=== PATIENT | female | born 1980 | race Caucasian/White ===

== ENCOUNTER 2023-07-28 03:14 | Outpatient (CLI) | payer OTHER, SELFPAY ==
[2023-07-28 12:58] LABS: Abs Immature Grans 0.01 10^3/uL (0.0-0.06); Absolute Basophil Count 0.04 10^3/uL (0.0-0.2); Absolute Eosinophil Count 0.04 10^3/uL (0.0-0.7); Absolute Lymphocyte Count 1.59 10^3/uL (1.2-3.4); Absolute Monocyte Count 0.28 10^3/uL (0.1-0.8); Absolute Neutrophil Count 3.62 10^3/uL (1.2-6.7); Basophils % 0.7; Eosinophils % 0.7; HCT 42.3 % (36.0-46.0); HGB 14.4 g/dL (11.2-15.7); Immature Grans % 0.2; Lymphocytes % 28.5; MCH 30.4 pg (27.0-33.0); MCV 89 fL (80-95); MPV 10.1 fL (8.0-11.0); Neutrophils % 64.9; Platelet Count 194 10^3/uL (130-400); RBC 4.74 10^6/uL (3.93-5.22); RDW 11.9 % (11.7-14.6); RDW-SD 38.9 fL; WBC 5.58 10^3/uL (4.4-10.8)
[2023-07-28 13:25] LABS: ALT 22 U/L (14-59); AST 15 U/L (15-37); Albumin 4.1 g/dL (3.4-5.0); Alkaline Phosphatase 58 U/L (46-116); Anion Gap 6.9 mmol/L (3-11); BUN 10 mg/dL (7-18); Bilirubin, Total 0.6 mg/dL (0.2-1.0); CO2 31.1 mmol/L (21.0-32.0); CREATININE 0.8 mg/dL (0.55-1.02); Calcium 9.1 mg/dL (8.5-10.1); Calculated LDL 96 mg/dL (<100); Chloride 104 mmol/L (98-107); Cholesterol 175 mg/dL (<200); Estimated GFR 94.87 (mL/min/1.73m2); Glucose 86 mg/dL (74-106); HDL Cholesterol 72 mg/dL (40-60); Hemoglobin A1C 5.1 % (<5.7); Potassium 3.9 mmol/L (3.5-5.1); Sodium 142 mmol/L (136-145); Total Protein 7.4 g/dL (6.4-8.2); Triglyceride 37 mg/dL (<150)
[2023-07-28 22:13] LABS: Estradiol 213 pg/mL (See Note)
[2023-07-28 22:15] LABS: Progesterone 0.4 ng/mL (See Table)
[2023-07-28 23:00] LABS: Hepatitis C Ab w Rflx HCV PCR Negative (Negative)
[2023-08-03 01:51] LABS: Testosterone, Total 68 ng/dL (8-60)
== END 2023-07-28 03:15 | disposition home or self-care (01) ==
LOC: LBO 03:14
PROVIDERS: PCP Nurse Practitioner Family; Visit Provider Nurse Practitioner Family
DX: Z00.00 Encounter for general adult medical examination without abnormal findings (principal); E28.2 Polycystic ovarian syndrome
CPT/HCPCS: 36415; 80053; 80061; 84403; 86803; 82670; 83001; 83002; 83036; 84144; 84443; 85025

== ENCOUNTER → 2023-08-01 03:24 | Outpatient (CLI) | payer OTHER, SELFPAY ==
--- NOTE | 2023-08-01 06:45 | DI.MAMMO_ITS ---
Exam(s) MAMMO SCREENING EXAM: MAMMO SCREENING CLINICAL HISTORY: screening,Z12.39. TECHNIQUE: Bilateral full field digital CC and MLO mammographic images were obtained with 3D tomosyn thesis and utilizing computer aided detection (CAD). COMPARISON: Prior outside mammogram of July 2022 FINDINGS: There has been no significant change in the appearance and distribution of the fibroglandular tissue. There are no CAD designations. There are no new spiculated masses nor malignant appearing microcalcification groups. There is no significant architectural distortion nor skin thickening-retraction. IMPRESSION: No radiographic evidence of malignancy. BI-RADS Category 1 - Negative Breast Density - Category C - Heterogeneously dense Breast density Category C or D implies that the patient has dense breast tissue. Dense breast tissue can make it harder to find cancer on a mammogram. Dense breast tissue is also associated with an incr eased risk of breast cancer. This information about the result of the mammogram report was provided to the patient to raise their awareness. Use this report when you speak with the patient about their risks for breast cancer, which includes their family history. At that time, you may recommend additional screening tests (Ultrasoun d or MRI) as these tests may add significant information. A negative radiographic report should not delay biopsy if a dominant or clinically suspicious mass is present. Up to ten percent of cancers are not identified on mammography. A negative report may reinforce clinical impression. Adenosis and dense breasts may obscure an underlying neoplasm. False positive reports average 6 to 10%. Patient will receive a letter notifying them of these results.
== END ==
PROVIDERS: PCP Nurse Practitioner Family; Visit Provider Nurse Practitioner Family
DX: Z12.31 Encounter for screening mammogram for malignant neoplasm of breast (principal)
CPT/HCPCS: 77063; 77067

== ENCOUNTER 2023-08-16 14:19 | Outpatient (REF) | payer OTHER, SELFPAY | END 2023-08-16 14:20 | disposition home or self-care (01) | LOC: LBN 14:19 | PROVIDERS: PCP Nurse Practitioner Family; Visit Provider Physician Assistant | DX: N39.0 Urinary tract infection, site not specified (principal) | CPT/HCPCS: 87086 ==

== ENCOUNTER 2023-08-23 14:20 | Outpatient (CLI) | payer OTHER, SELFPAY ==
[2023-08-23 22:42] LABS: CEA <0.5 ng/mL (See Note)
[2023-08-24 09:33] LABS: CA 19-9 3 U/mL (<35)
[2023-08-24 10:17] LABS: CA 125 20 U/mL (<30)
== END 2023-08-23 14:21 | disposition home or self-care (01) ==
LOC: LBO 14:24
PROVIDERS: PCP Nurse Practitioner Family; Visit Provider Obstetrics & Gynecology
DX: N83.201 Unspecified ovarian cyst, right side (principal)
CPT/HCPCS: 36415; 86304; 82378; 86301

== ENCOUNTER 2023-08-31 13:38 | Outpatient (REF) | payer OTHER, SELFPAY | END 2023-08-31 13:39 | disposition home or self-care (01) | LOC: LBN 13:38 | PROVIDERS: PCP Nurse Practitioner Family; Visit Provider Nurse Practitioner Family | DX: J02.9 Acute pharyngitis, unspecified (principal) | CPT/HCPCS: 87070 ==

== ENCOUNTER 2023-09-19 05:12 | Outpatient (CLI) | payer OTHER, SELFPAY | END 2023-09-19 05:13 | disposition home or self-care (01) | LOC: LBO 05:12 | PROVIDERS: PCP Nurse Practitioner Family; Visit Provider Obstetrics & Gynecology | DX: Z01.818 Encounter for other preprocedural examination (principal) | CPT/HCPCS: 36415; 86850; 86900; 86901 ==

== ENCOUNTER 2023-09-21 06:20 | Day surgery (SDC) | payer OTHER, SELFPAY ==
[2023-09-21] VITALS (8 sets, daily range): BP systolic 86–106; BP diastolic 50–76; PULSE 43–55; RESP 15–16; TEMP 36.2–36.5; O2SAT 99–100; BMI 23.4
[2023-09-21] MEDS: Lactated Ringers 1,000 ML 125 ML IV (06:48)
--- NOTE | 2023-09-21 06:53 | W.ANESPRE ---
General Info Date of Service Date Performed: 09/21/23 Height: 5 ft 6 in Weight: 65.941 kg Body Mass Index (BMI): 23.4 Surgical Procedure: Operation Date: 09/21/23 07:40 Proposed Procedure Side Surgeon p Oophorectomy Laparoscopic, Possible Rt Cystectomy, Possible Laparotomy Right Jill Hough MD Actual Procedure Side Surgeon p Oophorectomy Laparoscopic, Possible Rt Cystectomy, Possible Laparotomy Right Jill Hough MD Pre-Op Diagnosis Post-Op Diagnosis Right ovarian cyst Meds Allergies and Home Medications Allergies Allergy/AdvReac Type Severity Reaction Status Date / Time No Known Allergies Allergy Verified 09/21/23 06:48 Home Medication Medication Instructions Recorded cholecalciferol (vitamin D3) 25 25 mcg PO DAILY 07/06/23 mcg (1,000 unit) capsule bupropion HCl 150 mg tablet,12 hr 150 mg PO DAILY 07/14/23 sustained-release (Wellbutrin SR) medroxyprogesterone 10 mg tablet 10 mg PO DAILY #30 tabs 08/12/23 (Provera) oxycodone 5 mg capsule 5 mg PO Q8H PRN pain #7 caps 08/16/23 Current Visit Medications: Current Medications Generic Name Dose Route Start Last Admin Trade Name Freq PRN Reason Stop Dose Admin Ringer's Solution 1,000 mls @ 125 mls/hr 09/21/23 06:00 09/21/23 06:48 IV 10/20/23 23:59 125 mls/hr INFUSION FLEX Administration IV Miscellaneous Supplies 1 each 09/21/23 06:00 Iv Access IV 10/20/23 23:59 DIRECTED FLEX Sodium Chloride 0 ml 09/21/23 06:00 Normal Saline Flush 10 Ml Syr IV 10/20/23 23:59 PRN PRN Sodium Chloride 0 ml 09/21/23 06:00 Normal Saline 10 Ml Vial IJ 10/20/23 23:59 DIRECTED PRN Sterile Water 0 ml 09/21/23 06:00 Water,Injection,Sterile 10 Ml Vial IJ 10/20/23 23:59 DIRECTED PRN PFSH Active Problems Active Problems: Problem Status Onset Code Sore throat J02.9 Right lower quadrant pain R10.31 Right ovarian cyst N83.201 Polycystic ovary syndrome E28.2 Generalized anxiety disorder F41.1 Major depressive disorder F32.9 Chronic left shoulder pain M25.512, G89.29 Surgical History Surgical History History of section (12/11/16) and 12/05/2019 Tobacco Smoking/Tobacco Use Status: Never Alcohol Alcohol Intake: current Alcohol intake frequency: a few times a week Alcohol type: beer and wine Substance Use Substance use: Rarely Substance use type: marijuana Prental History History 2 Para 2 Hx # Term Pregnancies 2 Multiple births Hx # Pregnancies Ectopic pregnancies AB induced Hx Number of Living Children 2 AB spontaneous Vital Signs and Lab Results Vital Signs Most Recent Vital Signs in EMR: Most Recent Vital Signs Temp Pulse Resp BP Pulse Ox 36.5 C 50 L 16 106/73 100 09/21/23 06:42 09/21/23 06:42 09/21/23 06:42 09/21/23 06:42 09/21/23 06:42 Point of Care Results Point of Care Results: POC- Test(urine) Negative 09/21/23 06:42 Lab Results Blood Type / Crossmatch: Antibody Screen NEGATIVE 09/19/23 Complete Blood Count: No Data to Display Complete Metabolic Panel: No Data to Display Liver Function Panel: No Data to Display Coagulation Panel: No Data to Display Cardiac Panel: No Data to Display Arterial Blood Gas: No Data to Display Venous Blood Gas: No Data to Display Pancreas Panel: No Data to Display Thyroid Panel: No Data to Display Infectious Disease: No Data to Display Blood Cultures: No Data to Display Toxicology Panel: No Data to Display Panel: No Data to Display Imaging and Studies Imaging and Studies Study information below may be from another EMR and interpreted by another provider. Please see original notes in EMR for more complete details. EKG Summary: 07/26/22: ([place]): SB Echocardiogram Summary: Patient reports benign per [place] Anesthesia Assessment and Plan Anesthesia History Personal History: No History of Anesthesia Complications Family History: No Family History of Anesthesia Complications Exercise Tolerance Exercise Tolerance: Metabolic Equivalents>4 Pertinent Negatives Pertinent Negatives: No Symptoms of GERD, No Major Cardiovascular Symptoms or Complaints and No Major Pulmonary Symptoms or Complaints Cardiac & Pulmonary Exam Cardiac Exam: Normal S1/S2 Heart Sounds Pulmonary Exam: Clear Bilateral Breath Sounds Implantable Cardiac Device Does patient have a Pacemaker or an ICD?: No Airway Exam Known Difficult Airway: No Mallampati Class: 1 Mouth Opening: Normal (> 3cm) Thyromental Distance: Greater than 3 cm Neck Range of Motion: Full ROM Neck Circumference: Normal Teeth Condition: Normal Dentition ASA Classification ASA Score: ASA 2 Emergency Case?: No NPO Status NPO Status: NPO Clears >2 hours, Solids >8 hours Status Status: Negative HCG Anesthesia Plan Resuscitation Status: Full Code Anesthesia Technique: General Anesthesia Airway Planned: Endotracheal Tube Monitors Used: Standard Monitors
--- NOTE | 2023-09-21 09:00 | PAPNONF_PTH ---
PATIENT: Lorraine Thomas LOC: [facility] U#:[id number] AGE/SX: 42/F ROOM: RE09/21/[address]: Jill Hough MD : 1980 BED: DIS: 09/21/2023 SPEC #: [id number] RECD: 09/21/23 12:43 STATUS: AMBER REQ #: [id number] SHAQ: 09/21/23 09:[address]: Jill Hough DEPT: [facility] Cytology RECD BY: Pooja Vazquez ENTERED: 09/21/23 12:44 SP TYPE: HARRIET SIFUENTES DR: DAYDAY Llanos Tissues: 1 - BODY FLUID CYTO(NOT S/U/N/EM)[facility] Procedures: BODY FLUID CYTO(NOT SPU/UR/NIP/ENDOM)[facility] Comments: (Tv = 60 ml, SENT FRESH) (REFRIGERATED)
[2023-09-21] MEDS: Bupivacaine 0.5% Pres-Free 30 ML VIAL (09:03)
--- NOTE | 2023-09-21 09:15 | OVAR_PTH ---
PATIENT: Lorraine Thomas LOC: [facility] U#:[id number] AGE/SX: 42/F ROOM: RE09/21/[address]: Jill Hough MD : 1980 BED: DIS: 09/21/2023 SPEC #: [id number] RECD: 09/21/23 12:17 STATUS: AMBER MIRZA #: [id number] SHAQ: 09/21/23 09:[address]: Jill Hough DEPT: Surgical Specimen RECD BY: Pooja Vazquez ENTERED: 09/21/23 12:19 SP TYPE: ALANNA SIFUENTES DR: DAYDAY Llanos Tissues: 1 - OVARY NOT TUMOR W OR W/O TUBES 2 - FALLOPIAN TUBE (OTHER) Procedures: GROSS AND MICRO LEVEL 4 GROSS AND MICRO LEVEL 3 Comments: [id number]
--- NOTE | 2023-09-21 09:49 | W.PM.OP ---
Date of service: 09/21/23 Time of Service: 09:49 Operative Note Operative Note PRE-OP DIAGNOSIS: left ovarian cyst POST-OP DIAGNOSIS: same PROCEDURE: Laparoscopic left oophorectomy, bilateral salpingectomy SURGEON: Jill Hough ASSISTING SURGEON: Antoinette Denney Refer to Anesthesia Record ESTIMATED BLOOD LOSS: 100 PATHOLOGY: other (cyst fluid, right ovary, bilateral tubes) COMPLICATIONS: None Patient was transported to: PACU Patient's condition: stable Indications: Discovery of large right ovarian cyst on sono for pelvic pain. Normal tumor markers. Transportation Planning Engineer/onc consult with approval for local removal. Findings: Significantly enlarged right ovary >10cm, filling most of the pelvis. Normal appearing left ovary, tubes, uterus and appendix Procedure Description: After informed consent was signed the patient was taken to the operating room and given general anesthesia.? SCDs were placed on her legs.? She was prepped and draped in the dorsal lithotomy position in the [facility].? Her bladder was drained of urine via a straight catheter. A speculum was placed into the vagina to expose the cervix and a [employer]Dro[employer] manipulator was placed into the cervix. The speculum was removed. Gloves were changed and attention was turned to the abdomen. The infraumbilical fold was grasped and injected with 0.25% marcaine with epinephrine. A 12mm incision was made in the infraumbilical fold with the scalpel. A hemostat was used to bluntly dissect the subcuticular layers. The fascia was grasped with misael clamps and incised. The incision was extended with blunt pressure. The visiport was used to enter the abdomen under direct visualization. Once entrance to the abdominal cavity was confirmed the CO2 was turned on and the abdomen was insufflated. Two lateral 5mm ports were then placed under direct visualization. The enlarged ovary was immediately visible almost at the level of the umbilicus. It was traced back and identified as the right ovary. There were no adhesions. The IP ligament was identified and the ureter was noted to be far from the operative site. The IP ligament was clamped cauterized and cut with the ligasure device. This was continued along the mesosalpinx, across the round ligament and the utero-ovarian ligament. Good hemostasis was noted. The cyst was far too large to fit in the 10mm endocatch bag that was available so the laparoscopic needle was used to drain fluid from the cyst. A total of 600ml of fluid was drained from the cyst. The fluid was mostly clear with occasional blood tinge. The ovary was then put in the endocatch bag and eva up to the umbilical incision. The fascial incision was extended slightly. The ovary was slowly removed from the bag without losing any tissue into the abdominal cavity. The port was reinserted into the abdomen. The left tube was identified and followed to the fimbriated end. The tube was grasped and elevated and the mesosalpinx was clamped, cauterized and cut with the ligasure device. The was continued along the length of the tube. The proximal end of the tube was then transected with the ligasure. Good hemostasis was noted on both sides. The tube was removed individually through the port and noted to be intact. The abdomen was then copiously irrigated. The ports were removed. The gas was released from the abdomen. The fascia of the umbilical incision was identified and closed with 0 vicryl suture. The skin incisions were then closed with 4-0 vicryl. Mastisol and steristrips were placed. The manipulator was removed. The patient was placed back into the supine position.? She was moved to the stretcher and taken to the recovery room in stable condition.
[2023-09-21] MEDS: oxyCODONE 5 MG TAB PO (11:33)
--- NOTE | 2023-09-21 13:44 | W.PM.DSUDISC ---
Date of service: 09/21/23 Time of Service: 10:00 Discharge Plan Disposition Patient Disposition: Home Condition: Stable Discharge Details Attending Provider: Jill Hough Primary Care Provider: Bailey Meng Meds and New Rx's Prescriptions: No Action bupropion HCl [Wellbutrin SR] 150 mg tablet sustained-release 12 hr 150 mg PO DAILY medroxyprogesterone [Provera] 10 mg tablet 10 mg PO DAILY Qty: 30 1RF oxycodone 5 mg capsule 5 mg PO Q8H MDD 15mg PRN (Reason: pain) Qty: 7 0RF cholecalciferol (vitamin D3) 25 mcg (1,000 unit) capsule 25 mcg PO DAILY Discharge Instructions Activity:: no lifting >20lbs Shower/Bathe:: 24 hours Diet:: As Tolerated Discharge Orders Discharge Orders: Discharge Order (Routine); Ordered 09/21/23 Ordered By: Jill Hough
--- NOTE | 2023-09-21 13:47 | W.ANESPOSTOP ---
Postoperative Evaluation Date, Time and Location Date Performed: 09/21/23 Time Performed: 12:35 Patient Location: Day Surgery Unit Vital Signs Most Recent Imported Vital Signs: Most Recent Vital Signs Temp Pulse Resp BP Pulse Ox 36.3 C L 43 L 16 97/61 L 99 09/21/23 10:55 09/21/23 10:55 09/21/23 10:55 09/21/23 10:55 09/21/23 10:55 Pain Score Most Recent Pain Score: Most Recent Pain Score Pain Level 5 09/21/23 11:27 Assessment Mental Status: Awake (Alert & Oriented to Patient Baseline) Airway and Respiratory Function: Patent airway with normal (patient baseline) respiratory exam Cardiovascular Function: Hemodynamically Stable Hydration Status: Adequately Hydrated Nausea & Vomiting: No Nausea or Vomiting Pain: Pain is tolerable per patient Peripheral Nerve Block: Patient did not receive a nerve block
== END 2023-09-21 06:21 | disposition home or self-care (01) ==
PROVIDERS: PCP Nurse Practitioner Family; Visit Provider Obstetrics & Gynecology
PROC: (CPT 58661; principal; 2023-09-21 07:30)
DX: D27.0 Benign neoplasm of right ovary
CPT/HCPCS: 58661; 81025; 88305; 88104; 88304; J0131; J0665; J1100; J1885; J2001; J2250; J2405; J2704; J3010

== ENCOUNTER 2024-07-16 08:58 | Outpatient (CLI) | payer OTHER, SELFPAY | END 2024-07-16 08:59 | disposition home or self-care (01) | LOC: DI.CM 09:00 | PROVIDERS: PCP Nurse Practitioner Family; Visit Provider Nurse Practitioner Family | CPT/HCPCS: 93010 ==

== ENCOUNTER 2024-07-23 12:58 | Outpatient (CLI) | payer OTHER, SELFPAY ==
--- NOTE | 2024-07-23 13:00 | RT.EKG_ITS ---
APPROVED REPORT Exam: Resting ECG Reason for Exam: Andrae abbott of ARVC Patient Location: O HR:55 bpm ECG Measurements Heart Rate 55 AXIS [place] 171 P 77 QRSd 98 QRS 80 QT 429 T 61 QTc 411 Conclusion Sinus rhythm...normal P axis, V-rate 50- 99 Normal Electrocardiogram
== END 2024-07-23 12:59 | disposition home or self-care (01) ==
PROVIDERS: PCP Nurse Practitioner Family; Visit Provider Nurse Practitioner Family
DX: Z82.49 Family history of ischemic heart disease and other diseases of the circulatory system (principal); Z13.6 Encounter for screening for cardiovascular disorders
CPT/HCPCS: 93005; 93010

== ENCOUNTER 2024-08-15 00:57 | Outpatient (CLI) | payer OTHER, SELFPAY ==
--- NOTE | 2024-08-15 07:30 | DI.US_ITS ---
APPROVED REPORT EXAM: Comprehensive 2D, Doppler, and color-flow Echocardiogram Patient Location: Out-Patient Drilling Inspector: Severo Terry RDCS (AE) Indications: Family history of ARVC Conclusion Normal left ventricular wall thickness and chamber size. Ejection fraction is 60 to 65%. Wall motio n is normal Normal right ventricular size and function Both atria are normal in size There is no structural or hemodynamically significant valvular disease Estimated right ventricular systolic pressure is 18 mmHg Wall motion Left Ventricle The left ventricle is normal size. Left ventricular systolic function is normal. The left ventricular ejection fraction is within the normal range. There is normal left ventricular wall thickness. There is normal LV segmental wall motion. The left ventricular diastolic function is normal. There is no v entricular septal defect visualized. LVEF is 60-65%. Right Ventricle The right ventricle is normal size. The right ventricular systolic function is normal. Atria The left atrium size is normal. The right atrium size is normal. The interatrial septum is intact wit h no evidence for an atrial septal defect. Aortic Valve The aortic valve is normal in structure. Aortic valve is trileaflet. There is no aortic valvular sten osis. No aortic regurgitation is present. Mitral Valve The mitral valve is normal in structure. No evidence of mitral valve stenosis. Mild mitral regurgitat ion. Tricuspid Valve The tricuspid valve is normal in structure. There is no tricuspid valve stenosis. Trace tricuspid reg urgitation. The RVSP is 18.3 mmHg. Pulmonic Valve The pulmonary valve is normal in structure. There is no pulmonic valvular stenosis. There is no pulmo tesfaye valvular regurgitation. Great Vessels The aortic root is normal in size. The ascending aorta is normal in size. Aortic arch is normal in ca liber. IVC is normal in size and collapses >50% with inspiration. Pericardium There is no pericardial effusion. 2D Dimensions IVSD d PLAX 0.78 cm F: 0.6-1.0 Ao Root d 2.77 cm F: 2.7 - 3.3 LVPW d PLAX 0.83 cm F: 0.6 - 1.0 Ao Asc Diam d 3.13 cm F: 2.3 - 3.1 LVID d PLAX 4.38 cm F: 3.8 - 5.2 LVDs 2.82 cm F: 2.2 - 3.5 LV EF Teichholz 65.5 % FS 35.71 % LV EDV (Teich) 86.9 mL LV ESV (Teich) 30.0 mL Stroke Vol Index (Teich) 33.06 M-Mode TAPSE 2.71 cm (M/F) >1.7 Auto EF LV EDV A4C 89.4 mL LV EDV A2C 112.0 mL LV EDV BP 99.7 mL LV ESV A4C 35.8 mL LV ESV A2C 42.6 mL LV ESV BP 38.5 mL LVEF(%) A4C 60.0 % LVEF(%) A2C 62.0 % LVEF(%) BP 61.4 % LV SV A4C 53.6 ml LV SV A2C 69.4 ml LV SV BP 61.2 ml LV CO A4C 2.9 L/min LV CO A2C 3.6 L/min LV CO BP 3.2 L/min HR A4C 53.32 BPM HR A2C 52.03 BPM LV EDV Index (BP) LA Volume LA Length A4C 3.2 cm LA Length A2C 4.1 cm LA Area A4C s 8.41 cm2 LA Area A2C s 10.82 cm2 LA Vol A4C A-L 18.66 mL LA Vol A2C A-L 24.11 mL LA Vol Biplane A-L 24.0 mL LA Vol/BSA A4C A-L LA Vol/BSA A2C A-L LA Vol/BSA BP A-L 14.0 mL/m2 LA Vol A4C MOD 16.9 mL LA Vol A2C MOD 22.7 mL LA Vol BP MOD 21.7 mL RA Volume RA Area A4C 5.7 cm2 RA ESV A4C (A-L) 11.2mL RA Vol/BSA A4C A-L RA Length A4C 2.5 cm RA ESV A4C (MOD) 10.9mL LV Diastology MV E' medial 0.113 (>0.07 m/s) MV E Vmax 0.61 (0.4-1.3 m/s) MV E/E' MED 5.40 (<14) MV A Vmax 0.50 (0.4-1.3 m/s) MV E' lateral 0.152 (>0.1 m/s) E/A Ratio 1.2 MV E/E' LAT 4.02 (<14) MV E' Average 0.132 m/s MV E/E'(average) 4.61 Aortic Valve AoV Vmax 1.12 m/s LVOT Vmax 1.05 m/s AoV Peak Grad 5.0 mmHg LVOT Peak Grad 4.4 mmHg AoV Area (Vmax) 2.90 cm2 LVOT VTI 0.228 m AoV VTI 0.249 m LVOT Mean Grad 2.4 mmHg AoV Mean Richar. 0.77 m/s LVOT SV 70.23 mL AoV Mean Grad 2.7 mmHg LVOT Diam s 1.95 cm AoV Area (VTI) 2.82 cm2 AV Regurg Peak Gr. 5.01 mmHg Velocity Ratio 0.94 Mitral Valve MV DT 171 (160-240 msec) Pulmonary Valve PV Vmax 0.63 (0.5-1.5 m/s) RVOT Vmax 0.46 m/s PV Peak Grad 1.6 mmHg RVOT Peak Gr. 0.8 mmHg PV Mean Richar 0.48 m/s RVOT VTI 0.120 m PV Mean Grad 1.0 mmHg RVOT Mean Gr. 0.5 mmHg Tricuspid Valve RA Pressure 3.00 mmHg TR Vmax 1.95 m/s TV S' 0.14 m/s TR Peak Grad 15.2 mmHg RVSP (TR) 18.3 mmHg
--- NOTE | 2024-08-15 11:07 | DI.MAMMO_ITS ---
Exam(s) MAMMO SCREENING EXAM: MAMMO SCREENING CLINICAL HISTORY: screening,z12.39 TECHNIQUE: Bilateral full field digital CC and MLO mammographic images were obtained with 3D tomosyn thesis and utilizing computer aided detection (CAD). COMPARISON: Available for comparison. FINDINGS: Masses/Architectural Distortion: None seen. Microcalcifications: No suspicious pleomorphic-type are seen. Skin Thickening/Nipple Retraction: None. IMPRESSION: 1. No significant interval change with no specific features of malignancy noted. 2. Unless there is more urgent need, screening mammography is recommended, as per [place] [employer] guidelines. BI-RADS Category 1 - Negative Breast Density - Category C - Heterogeneously dense Breast density category C or D implies that the patient has dense breast tissue. Dense breast tissue is very common and is not abnormal but dense breast tissue can make it harder to find cancer on a ma mmogram. Also, dense breast tissue may increase their breast cancer risk. This information about the result of the mammogram report was provided to the patient to raise their awareness. Use this report when you speak with the patient about their risks for breast cancer, which includes their family hist ory. At that time, you may recommend for more screening tests (Ultrasound or MRI) as they might be us eful based on their risk. A negative radiographic report should not delay biopsy if a dominant or clinically suspicious mass is present. Up to ten percent of cancers are not identified on mammography. A negative report may reinforce clinical impression. Adenosis and dense breasts may obscure an underlying neoplasm. False positive reports average 6 to 10%. Patient will receive a letter notifying them of these results.
== END 2024-08-15 01:17 ==
LOC: DI 00:57
PROVIDERS: PCP Nurse Practitioner Family; Visit Provider Nurse Practitioner Family
DX: Z82.49 Family history of ischemic heart disease and other diseases of the circulatory system (principal); Z12.31 Encounter for screening mammogram for malignant neoplasm of breast; R92.333 Mammographic heterogeneous density, bilateral breasts; Z13.6 Encounter for screening for cardiovascular disorders
CPT/HCPCS: 77063; 77067; 93306

== ENCOUNTER 2024-09-21 09:57 | Outpatient (REF) | payer OTHER, SELFPAY ==
--- NOTE | 2024-09-21 10:00 | PAPFT_PTH ---
PATIENT: Lorraine Thomas LOC: [facility] U#:[id number] AGE/SX: 43/F ROOM: RE09/21/[address]: Jill Hough MD : 1980 BED: DIS: 09/21/2024 SPEC #: [id number] RECD: 09/21/24 12:48 STATUS: AMBER REParveen #: [id number] SHAQ: 09/21/24 10:[address]: Jill Hough DEPT: [facility] Cytology RECD BY: Pooja Vazquez ENTERED: 09/21/24 12:48 SP TYPE: PAPFT OTHR DR: Bailey Meng, DAYDAY Tissues: 1 - CX/ENDOCX FOR PAP SMEARS Procedures: PAP THIN PREP/[facility] Screening HPV DNA PROBE Comments: [id number] (HPV 16 & 18/45)
== END 2024-09-21 09:58 | disposition home or self-care (01) ==
LOC: LBN 09:57
PROVIDERS: PCP Nurse Practitioner Family; Visit Provider Obstetrics & Gynecology
DX: Z11.51 Encounter for screening for human papillomavirus (HPV) (principal); Z01.419 Encounter for gynecological examination (general) (routine) without abnormal findings
CPT/HCPCS: 88142; 87624

== ENCOUNTER 2024-12-31 14:07 | Outpatient (CLI) | payer OTHER, SELFPAY ==
--- NOTE | 2024-12-31 11:45 | DI.RAD_ITS ---
Exam(s) XR TOE RT SECOND EXAM: XR TOE RT SECOND CLINICAL HISTORY: fall 12/30. Pain and bruising at DIP, S99.921A-injury of 2nd toe, rt foot. TECHNIQUE: 2D digital imaging was performed. COMPARISON: No exams were available for comparison FINDINGS: BONES: There is a tiny fracture fragment at the dorsal plate of the distal phalanx of the 2nd toe. No additional fractures. No bony destructive lesion is seen. JOINTS: No dislocation present. SOFT TISSUE: Swelling of the 2nd toe. IMPRESSION: Tiny fracture fragment at the dorsal plate of the distal phalanx of the 2nd toe. DATA REPOSITORY: RADIATION DOSE DELIVERED:
== END 2024-12-31 14:27 ==
LOC: DI 01-10 14:07
PROVIDERS: PCP Nurse Practitioner Family; Visit Provider Pediatrics
DX: S99.921A Unspecified injury of right foot, initial encounter (principal); X58.XXXA Exposure to other specified factors, initial encounter; S92.522A Displaced fracture of middle phalanx of left lesser toe(s), initial encounter for closed fracture
CPT/HCPCS: 73660

== ENCOUNTER 2025-02-15 04:32 | Outpatient (CLI) | payer OTHER, SELFPAY ==
--- NOTE | 2025-02-15 06:30 | DI.MRI_ITS ---
Exam(s) MR UPPER JOINT LT WO EXAM: MR UPPER JOINT LT WO CLINICAL HISTORY: chronic left shoulder pain,m25.512,g89.29 TECHNIQUE: Multiplanar multisequence MRI of the shoulder was performed. COMPARISON: Left shoulder outside images of June 2017 reviewed. There are no more recent plain films of the shoulder available at the time of this MRI interpretation FINDINGS: MARROW:There is no evidence of fracture, Hill-Sachs deformity, nor ominous osseous lesions. GLENOHUMERAL JOINT: No joint effusion nor obvious loose intra-articular bodies. No chondral defects. No osteophytes. No degenerative subarticular cysts. ROTATOR CUFF MECHANISM: AC JOINT/ACROMIUM: There are no significant degenerative changes in the acromioclavicular joint.. No intraosseous signal abnormality evident in the a chromium nor within the visualized clavicle. There is no evidence of os acromiale. Supraspinatus: No obvious tendinitis signal. Very mild edema noted in the subacromial space above the supraspinatus.. No true fluid collection. There is no atrophy of the muscle belly. Infraspinatus: Intact. No evidence of tear nor muscle atrophy. Teres Minor: Intact. No evidence of tear nor muscle atrophy. Subscapularis/anterior cuff: Intact. No abnormal signal at the level of the multipennate insertional fibers. No significant tear nor atrophy. BICEPS TENDON: Exhibits normal position within the intertubercular groove. No evidence of tear. No tenosynovitis. LABRUM: There is no abnormal signal in the superior labrum posterior to the biceps attachment site. Posterior labrum is also intact as is the inferior labrum. No evidence of anterior labral tear. The inferior glenohumeral ligament appears intact. LABROLIGAMENTOUS/CAPSULAR COMPLEX: There is no evidence of avulsion of the anterior-inferior labrum, capsule, inferior glenohumeral ligament complex nor disruption of the scapular periosteum to suggest the presence of a Bankart lesion. QUADRILATERAL SPACE: No evidence of mass in the region of the axillary nerve and dorsal circumflex humeral vessels. Visualized triceps muscle at this level appears unremarkable. IMPRESSION: 1. Mild findings. There is minimal if any significant signal abnormality in the supraspinatus tendon. On the sagittal images there is some very mild edema overlying the supraspinatus in the subacromial space but no distinct fluid collection. There are no tears of the rotator cuff musculature and no muscle atrophy nor myositis signal nor denervation signal in the muscular components of the rotator cuff mechanism. 2. No significant degenerative changes in the glenohumeral joint and no joint effusion or loose intra-articular bodies evident. Also no degenerative changes in the AC joint. 3. No evidence of biceps tendon nor labral tears. DATA REPOSITORY:
== END 2025-02-15 04:52 ==
LOC: DI 04:32
PROVIDERS: PCP Nurse Practitioner Family; Visit Provider Nurse Practitioner Family
DX: M25.512 Pain in left shoulder (principal); G89.29 Other chronic pain
CPT/HCPCS: 73221

== ENCOUNTER → 2025-04-03 02:10 | Outpatient (CLI) | payer OTHER, SELFPAY ==
--- NOTE | 2025-04-03 07:45 | DI.RAD_ITS ---
Exam(s) XR LUMBAR SPINE COMPLETE EXAM: XR LUMBAR SPINE COMPLETE CLINICAL HISTORY: lumbar radiculopathy, M54.16. TECHNIQUE: 2D digital imaging was performed. Five views. COMPARISON: No exams were available for comparison FINDINGS: BONES: No fracture or destructive lesion. Vertebral body heights are maintained. No facet hypertrophy identified . DISKS: Intervertebral disc spaces are maintained. ALIGNMENT: Lumbar spinal alignment is within normal limits. SOFT TISSUE: Normal. IMPRESSION: Unremarkable radiographs of the lumbar spine. DATA REPOSITORY: RADIATION DOSE DELIVERED:
== END ==
LOC: DI 02:10
PROVIDERS: PCP Nurse Practitioner Family; Visit Provider Nurse Practitioner Family
DX: M54.16 Radiculopathy, lumbar region (principal)
CPT/HCPCS: 72110

== ENCOUNTER → 2025-04-26 01:22 | Outpatient (CLI) | payer OTHER, SELFPAY ==
--- NOTE | 2025-04-26 06:30 | DI.MRI_ITS ---
Exam(s) MR LUMBAR SPINE WO EXAM: MR LUMBAR SPINE WO CLINICAL HISTORY: lumbar radiculopathy,m54.16. TECHNIQUE: Multiplanar multisequence MRI of the Lumbar spine was performed. COMPARISON: US US RENAL PELVIC TRANSVAGINAL from 08/16/2023 CR XR LUMBAR SPINE COMPLETE from 04/03/2025 FINDINGS: Bones: The last intervertebral disc space is designated the L5/S1 level for the numbering purpose of this examination. The vertebral body heights are well maintained. Alignment: Unremarkable. The marrow signal characteristics are unremarkable. Hemangiomas in the S2 through S4 segments. Cord: The conus tip ends at the T12 level. It is of normal size and signal intensity. T12-L1:Normal disc height. No focal disc herniation is present. No central spinal canal stenosis.No neural foraminal stenosis. L1-2:Normal disc height. No focal disc herniation is present. No central spinal canal stenosis.No neural foraminal stenosis. L2-3:Normal disc height. No focal disc herniation is present. No central spinal canal stenosis.No neural foraminal stenosis. L3-4: Normal disc height.No focal disc herniation is present. No central spinal canal stenosis.No neural foraminal stenosis. L4-5: The disc height is normal. There is a small disc protrusion involving the right lateral recess and neural foramen. This of impinges on the nerve root. No central spinal canal stenosis.No neural foraminal stenosis. L5-S1: Normal disc height.No focal disc herniation is present. No central spinal canal stenosis.No neural foraminal stenosis. The visualized SI joints and sacrum are unremarkable. Soft tissues: The paraspinal soft tissues are unremarkable. IMPRESSION: L4-5 right-sided disc protrusion involving the lateral recess and neural foramen with nerve root impingement. The exam is otherwise unremarkable.. DATA REPOSITORY:
== END ==
LOC: DI 01:22
PROVIDERS: PCP Nurse Practitioner Family; Visit Provider Nurse Practitioner Family
DX: M54.16 Radiculopathy, lumbar region (principal)
CPT/HCPCS: 72148